=== PATIENT | male | born 1945 | race Caucasian/White ===

== ENCOUNTER 2018-01-10 11:15 | Day surgery (SDC) | payer MEDICARE ==
[~2018-01-10] VITALS: Ht 182.9 cm; Wt 102.5 kg
[~2018-01-10 11:15] MED LIST: ALBU90OI6 INH; ASPI325 PO; ASPI81CH PO; ATEN25 PO; CETI10 PO; CETI5 PO; CHOL10002 PO; DOCU100 PO; FERR325 PO; FISH1000 PO; Flonase 0.05% N16 GM; LOSA25 PO; MAGNESIUM PO; MULVITMIND PO; OMEP20ER PO; OXYACE5T PO; Percocet 5-3251 EACH PO; TAMS.4ER PO; TRAM50 PO; WARF4 PO
== END 2018-01-10 13:26 | disposition home or self-care (01) ==
LOC: ORSCSDS 11:15
PROVIDERS: Internal Medicine Gastroenterology
PROC: 0DBN8ZX Excision of Sigmoid Colon, Via Natural or Artificial Opening Endoscopic, Diagnostic (ICD-10-PCS; principal; 2018-01-10 12:30)
PROC: 0DBK8ZX Excision of Ascending Colon, Via Natural or Artificial Opening Endoscopic, Diagnostic (ICD-10-PCS; principal; 2018-01-10 12:30)
PROC: 0DBH8ZX Excision of Cecum, Via Natural or Artificial Opening Endoscopic, Diagnostic (ICD-10-PCS; principal; 2018-01-10 12:30)
DX: Z12.11 Encounter for screening for malignant neoplasm of colon (principal); D12.0 Benign neoplasm of cecum; K63.5 Polyp of colon; K64.8 Other hemorrhoids; K57.30 Diverticulosis of large intestine without perforation or abscess without bleeding; Z86.010 Personal history of colon polyps; I48.0 Paroxysmal atrial fibrillation; Z95.0 Presence of cardiac pacemaker; I10 Essential (primary) hypertension; K21.9 Gastro-esophageal reflux disease without esophagitis; J45.909 Unspecified asthma, uncomplicated; Z87.891 Personal history of nicotine dependence; G47.33 Obstructive sleep apnea (adult) (pediatric); Z79.82 Long term (current) use of aspirin; Z79.899 Other long term (current) drug therapy
CPT/HCPCS: 88305

== ENCOUNTER → 2018-02-15 | Outpatient (CLI) | payer MEDICARE | END | disposition home or self-care (01) | LOC: LAB SHORT 11:18 → PLD 11:18 | DX: D23.62 Other benign neoplasm of skin of left upper limb, including shoulder (principal); D49.2 Neoplasm of unspecified behavior of bone, soft tissue, and skin | CPT/HCPCS: 88305 ==

== ENCOUNTER 2020-11-19 08:19 | Day surgery (SDC) | payer MEDICARE ==
[~2020-11-19] VITALS: Ht 180.3 cm; Wt 103.5 kg
[~2020-11-19 08:19] MED LIST changes: -ASPI325 PO; +Aspir 8181 MG PO; +FLOVENT HFA12 GM INH; +RIZATRIPTAN10 MG SL; +TOBRADEX ST EYE5 M1 BOTHEYES; +TOPI50 PO
--- NOTE | 2020-11-19 09:02 | NUR ---
Ambulatory in Day Surgery History, Chart, Medications and Allergies reviewed before start of procedure. Lungs clear T/O to Auscultation. Patient confirms NPO status and agrees with scheduled surgery. Pre-Op teaching done. Pt verbalizes understanding. Patient States Post-Procedure ride home has been arranged.
--- NOTE | 2020-11-19 09:40 | NUR ---
Ambulatory in Day Surgery History, Chart, Medications and Allergies reviewed before start of procedure.Patient confirms NPO status and agrees with scheduled surgery. Patient reports completing Chlorhexadine shower X2 prior to admission to hospital.Surgical site prepped with 2% Chlorhexidine cloth wipe.
--- NOTE | 2020-11-19 12:44 | NUR ---
Patient up to Ambulate independently. Gait steady. Discharge instructions reviewed with patient. Patient verbalizes understanding. Copy given to patient to take home. Discharged via wheelchair to private car for ride home.
== END 2020-11-19 12:43 | disposition home or self-care (01) ==
LOC: ORSCMMR 08:19 → ORD 09:30 → ORSCMMR 12:43
PROVIDERS: Surgery
PROC: 0WUF0JZ Supplement Abdominal Wall with Synthetic Substitute, Open Approach (ICD-10-PCS; principal; 2020-11-19 09:30)
DX: K42.0 Umbilical hernia with obstruction, without gangrene (principal); I10 Essential (primary) hypertension; I48.0 Paroxysmal atrial fibrillation; G47.33 Obstructive sleep apnea (adult) (pediatric); J45.909 Unspecified asthma, uncomplicated; Z87.891 Personal history of nicotine dependence; Z79.899 Other long term (current) drug therapy
CPT/HCPCS: A9270; C1781; J0690; J1100; J2250; J2405; J3010; J7120

== ENCOUNTER → 2021-04-26 | Outpatient (CLI) | payer MEDICARE | END | disposition home or self-care (01) | LOC: LAB SHORT 14:19 → LAB 14:19 | DX: D22.5 Melanocytic nevi of trunk (principal) | CPT/HCPCS: 88305 ==

== ENCOUNTER 2021-11-16 12:30 | Day surgery (SDC) | payer MEDICARE ==
[~2021-11-16] VITALS: Ht 177.8 cm; Wt 103.4 kg
[~2021-11-16 12:30] MED LIST changes: +ALBU90OI INH
== END 2021-11-16 15:25 | disposition home or self-care (01) ==
LOC: ORSCSDS 12:30
PROVIDERS: Surgery
PROC: 0DB48ZX Excision of Esophagogastric Junction, Via Natural or Artificial Opening Endoscopic, Diagnostic (ICD-10-PCS; principal; 2021-11-16 13:45)
PROC: 0DJD8ZZ Inspection of Lower Intestinal Tract, Via Natural or Artificial Opening Endoscopic (ICD-10-PCS; principal; 2021-11-16 13:45)
PROC: 0DB68ZX Excision of Stomach, Via Natural or Artificial Opening Endoscopic, Diagnostic (ICD-10-PCS; principal; 2021-11-16 13:45)
DX: Z12.11 Encounter for screening for malignant neoplasm of colon (principal); K22.70 Barrett's esophagus without dysplasia; Z86.010 Personal history of colon polyps; K64.8 Other hemorrhoids; K57.30 Diverticulosis of large intestine without perforation or abscess without bleeding; J45.909 Unspecified asthma, uncomplicated; Z95.0 Presence of cardiac pacemaker; E66.9 Obesity, unspecified; Z68.31 Body mass index [BMI] 31.0-31.9, adult; Z79.82 Long term (current) use of aspirin; Z79.899 Other long term (current) drug therapy
CPT/HCPCS: 43239; G0105; 88305; 88342; J0330; J0461; J2405; J2704; J7120

== ENCOUNTER 2022-01-01 09:52 | Emergency (ER) | payer MEDICARE ==
[~2022-01-01] VITALS: Ht 177.8 cm; Wt 106.6 kg
[2022-01-01 11:23] LABS: BASOPHILS ABSOLUTE AUTO 0.06 K/mm3 (0.00-0.23); BASOPHILS PERCENT AUTO 1 % (0-2); EOSINOPHILS ABSOLUTE AUTO 0.13 K/mm3 (0.00-0.68); EOSINOPHILS PERCENT AUTO 3 % (0-6); Hematocrit 44.3 % (37.0-53.0); Hemoglobin 15.1 g/dL (13.5-17.5); IMMATURE GRAN ABSOLUTE AUTO 0.01 K/mm3 (0.00-0.10); IMMATURE GRAN PERCENT AUTO 0 % (0-1); LYMPHOCYTES ABSOLUTE AUTO 1.32 K/mm3 (0.84-5.20); LYMPHOCYTES PERCENT AUTO 25 % (21-46); MONOCYTES ABSOLUTE AUTO 0.52 K/mm3 (0.16-1.47); MONOCYTES PERCENT AUTO 10 % (4-13); Mean Corpuscular HGB 31.9 pg (26.0-34.0); Mean Corpuscular HGB Conc 34.1 g/dL (31.5-36.5); Mean Corpuscular Volume 94 fL (80-100); Mean Platelet Volume 10.8 fL (9.1-12.4); NEUTROPHILS ABSOLUTE AUTO 3.23 K/mm3 (1.96-9.15); NEUTROPHILS PERCENT AUTO 61 % (41-73); Platelet Count 155 K/mm3 (150-400); RDW Coefficient Variation 12.4 % (11.7-14.2); RDW Standard Deviation 43.2 fL (35.1-46.3); Red Blood Cell Count 4.74 M/mm3 (4.30-5.90); White Blood Cell Count 5.27 K/mm3 (4.00-11.30)
[2022-01-01 11:39] LABS: Albumin, Blood 3.6 g/dL (3.4-5.0); Albumin/Globulin Ratio 1.1 (0.8-1.8); Bilirubin, Total 0.6 mg/dL (0.1-1.0); Bun/Creatinine Ratio 22.8 (12.0-20.0); Creatinine, Blood 0.79 mg/dL (0.60-1.20); Globulin, Blood 3.2 g/dL (2.2-4.0); Potassium, Blood 4.5 mmol/L (3.5-5.5); Total Protein, Blood 6.8 g/dL (6.4-8.2)
== END 2022-01-01 12:22 | disposition home or self-care (01) ==
LOC: ER 09:52
PROVIDERS: Physician Assistant
DX: I49.3 Ventricular premature depolarization (principal); I10 Essential (primary) hypertension; J44.9 Chronic obstructive pulmonary disease, unspecified; K21.9 Gastro-esophageal reflux disease without esophagitis; Z95.0 Presence of cardiac pacemaker; Z87.891 Personal history of nicotine dependence; Z79.899 Other long term (current) drug therapy
CPT/HCPCS: 36415; 71045; 80053; 83690; 83735; 83880; 84484; 85025; 93005; 93010

== ENCOUNTER 2022-11-30 08:02 | Day surgery (SDC) | payer MEDICARE ==
[2022-11-30] VITALS (9 sets, daily range): BP systolic 86–140; BP diastolic 47–79
[~2022-11-30] VITALS: Ht 180.3 cm; Wt 107.0 kg
[~2022-11-30 08:02] MED LIST changes: +ASCORBIC ACID; +ASPIR 8181 M1 PO; +CHOLECALCIFEROL; +MAGNESIUM; +MELO7.5 PO; +METO25ER PO; +SPIR25 PO; +SYMBICORT 80-10.2 GM; +TORSE20 PO; +Vitamin B Comple1 EA PO
--- NOTE | 2022-11-30 14:00 | NUR ---
PATIENT ARRIVED TO RECOVERY ROOM SITTING UPRIGHT IN RECLINER, CONVERSING APPROPRIATELY. PACEMAKER SITE C/D/I, NO EVIDENCE OF BLEEDING. VSS ON ROOM AIR.
--- NOTE | 2022-11-30 14:30 | NUR ---
PATIENT TOLERATING PO INTAKE WELL.
[2022-11-30] MEDS ORDERED: CEPH500 PO (14:39)
--- NOTE | 2022-11-30 15:20 | NUR ---
CHEST X RAY AND EKG PERFORMED. PATIENT SITTING COMFORTABLY IN RECLINER. PACEMAKER SITE C/D/I, PATIENT DENYING ANY PAIN. VSS ON ROOM AIR.
--- NOTE | 2022-11-30 16:21 | NUR ---
PATIENT DISCHARGE INSTRUCTIONS REVIEWED, ALL QUESTIONS ANSWERED. PATIENT RECEIVING ABX. VSS ON ROOM AIR. PACEMAKER SITE C/D/I.
--- NOTE | 2022-11-30 16:35 | NUR ---
L ARM IN SLING. PATIENT INSTRUCTED TO WEAR SLING FOR 3 DAYS EXCEPT WHEN SLEEPING. DRESSING C/D/I, NO EVIDENCE OF BLEEDING.
--- NOTE | 2022-11-30 16:47 | NUR ---
PATIENT DISCHARGED HOME AT THIS TIME. PIV REMOVED WITHOUT DIFFICULTY, CATHETER INTACT. ALL PATIENT BELONGINGS AND PAPERWORK LEFT WITH PATIENT. PATIENT WHEELED TO HOSPITAL ENTRANCE. SPOUSE ABLE TO PROVIDE TRANSPORTATION HOME
== END 2022-11-30 16:50 | disposition home or self-care (01) ==
LOC: MHTC 08:02
DX: I42.8 Other cardiomyopathies (principal); Z45.010 Encounter for checking and testing of cardiac pacemaker pulse generator [battery]; I44.2 Atrioventricular block, complete; K21.9 Gastro-esophageal reflux disease without esophagitis; G47.33 Obstructive sleep apnea (adult) (pediatric); I48.0 Paroxysmal atrial fibrillation; Z87.891 Personal history of nicotine dependence; Z88.8 Allergy status to other drugs, medicaments and biological substances; Z88.7 Allergy status to serum and vaccine; Z79.899 Other long term (current) drug therapy
CPT/HCPCS: 33225; 33229; 71045; 76937; 93005; 93010; 99152; 99153; C1769; C1781; C1887; C1894; C2621; J0690; J1200; J1644; J1720; J2250; J3010; J7030; J7040; Q9967

== ENCOUNTER 2023-07-19 16:07 | Inpatient (IN) | payer MEDICARE ==
[~2023-07-19] VITALS: Ht 180.3 cm; Wt 107.4 kg
[~2023-07-19 16:07] MED LIST changes: -JARDIANCE10 MG PO; -NASACORT10.8 ML; -Pulmicort Flex90 MCG INH
[2023-07-20 00:02] VITALS: BP 140/84
[2023-07-20 03:18] VITALS: BP 129/80
--- NOTE | 2023-07-20 03:40 | NUR ---
CALLED HOSPITALIST AFTER CHEST X-RAY WAS COMPLETED TO CONFIRM PLACEMENT OF NG TUBE. PER HOSPITALIST, NG CORRECTLY PLACED AND APPROPRIATE TO BE CONNECTED TO LOW INTERMITTENT SUCTION.
[2023-07-20 05:17] LABS: BASOPHILS ABSOLUTE AUTO 0.03 K/mm3 (0.00-0.23); BASOPHILS PERCENT AUTO 0 % (0-2); EOSINOPHILS ABSOLUTE AUTO 0.07 K/mm3 (0.00-0.68); EOSINOPHILS PERCENT AUTO 1 % (0-6); Hematocrit 46.5 % (37.0-53.0); Hemoglobin 16.1 g/dL (13.5-17.5); IMMATURE GRAN ABSOLUTE AUTO 0.02 K/mm3 (0.00-0.10); IMMATURE GRAN PERCENT AUTO 0 % (0-1); LYMPHOCYTES ABSOLUTE AUTO 1.54 K/mm3 (0.84-5.20); LYMPHOCYTES PERCENT AUTO 22 % (21-46); MONOCYTES ABSOLUTE AUTO 1.03 K/mm3 (0.16-1.47); MONOCYTES PERCENT AUTO 14 % (4-13); Mean Corpuscular HGB 32.1 pg (26.0-34.0); Mean Corpuscular HGB Conc 34.6 g/dL (31.5-36.5); Mean Corpuscular Volume 93 fL (80-100); NEUTROPHILS ABSOLUTE AUTO 4.48 K/mm3 (1.96-9.15); NEUTROPHILS PERCENT AUTO 62 % (41-73); Platelet Count 162 K/mm3 (150-400); RDW Standard Deviation 44.1 fL (35.1-46.3); Red Blood Cell Count 5.01 M/mm3 (4.30-5.90); White Blood Cell Count 7.17 K/mm3 (4.00-11.30)
[2023-07-20 05:49] LABS: Albumin, Blood 3.1 g/dL (3.4-5.0); Albumin/Globulin Ratio 0.8 (0.8-1.8); Bilirubin, Total 0.7 mg/dL (0.1-1.0); Bun/Creatinine Ratio 35.9 (12.0-20.0); Creatinine, Blood 0.78 mg/dL (0.60-1.20); Globulin, Blood 3.9 g/dL (2.2-4.0); Potassium, Blood 4.7 mmol/L (3.5-5.5)
--- NOTE | 2023-07-20 06:08 | NUR ---
SHIFT SUMMARY: LEXA IS A&OX4. VSS, NO ACUTE EVENTS SINCE ADMISSION TO THE FLOOR THIS SHIFT. HE IS NPO, NG TUBE IN PLACE TO LOW INTERMITTENT SUCTION. PT IS INDEPENDENT IN THE ROOM, CONTINENT OF BLADDER AND BOWEL, AND REPORTS ADEQUATE PAIN RELIEF WITH MEDICATIONS PER MAR. PER ER DOCUMENTATION, SURGICAL CONSULT CALLED TO ON-CALL GENERAL SURGEON. PT REPORTS NAUSEA WHICH HE STATED WAS ALLEVIATED WITH MEDICATION PER MAR. PT IS LYING IN BED WITH THE CALL LIGHT IN REACH. WILL GIVE REPORT TO ONCOMING NURSE.
[2023-07-20 07:43] VITALS: BP 147/83
[2023-07-20] MEDS ORDERED: Pulmicort Flex90 MCG INH (14:33)
[2023-07-20] MEDS ORDERED: NASACORT10.8 ML (15:10)
[2023-07-20 15:43] VITALS: BP 128/76
--- NOTE | 2023-07-20 16:40 | NUR ---
SHIFT SUMMARY PATIENT ALERT AND INTERACTIVE. PATIENT AMBULATING IN HALLS. PATIENT ABLE TO PASS GAS BUT UNABLE TO HAVE A BM. PATIENT ANXIOUS AND WORRIED ABOUT POSSIBLE OUTCOMES. PATIENT HOPEFUL THAT NG TUBE WILL BE ABLE TO COME OUT. PATIENT DENIES ANY NAUSEA. NG HAS BEEN CLAMPED MOST OF THE DAY BECAUSE OF RADIOLOGY STUDY. FAMILY AT BEDSIDE AND EAGER TO HEAR UPDATE FROM SURGEON.
[2023-07-20 19:43] VITALS: BP 137/80
[2023-07-21 03:17] VITALS: BP 159/77
[2023-07-21 04:46] LABS: BASOPHILS ABSOLUTE AUTO 0.04 K/mm3 (0.00-0.23); BASOPHILS PERCENT AUTO 1 % (0-2); EOSINOPHILS ABSOLUTE AUTO 0.19 K/mm3 (0.00-0.68); EOSINOPHILS PERCENT AUTO 3 % (0-6); Hematocrit 43.2 % (37.0-53.0); Hemoglobin 15.1 g/dL (13.5-17.5); IMMATURE GRAN ABSOLUTE AUTO 0.02 K/mm3 (0.00-0.10); IMMATURE GRAN PERCENT AUTO 0 % (0-1); LYMPHOCYTES ABSOLUTE AUTO 1.27 K/mm3 (0.84-5.20); LYMPHOCYTES PERCENT AUTO 20 % (21-46); MONOCYTES ABSOLUTE AUTO 0.76 K/mm3 (0.16-1.47); MONOCYTES PERCENT AUTO 12 % (4-13); Mean Corpuscular HGB 31.9 pg (26.0-34.0); Mean Corpuscular Volume 91 fL (80-100); Mean Platelet Volume 10.3 fL (9.1-12.4); NEUTROPHILS ABSOLUTE AUTO 4.05 K/mm3 (1.96-9.15); NEUTROPHILS PERCENT AUTO 64 % (41-73); Platelet Count 153 K/mm3 (150-400); RDW Coefficient Variation 12.5 % (11.7-14.2); RDW Standard Deviation 42.1 fL (35.1-46.3); Red Blood Cell Count 4.73 M/mm3 (4.30-5.90); White Blood Cell Count 6.33 K/mm3 (4.00-11.30)
--- NOTE | 2023-07-21 04:58 | NUR ---
PATIENT IS ALERT AND ORIENTED, ON ROOM AIR. WITH NG TUBE PLACED AND CLAMPED. WITH PIV ON RIGHT AC WITH ONGOING IV FLUIDS INFUSING WELL. COMPLAINT OF THROAT PAIN, WAS ABLE TO GET MEDICATION ORDERED AND MEDICATED ACCORDINGLY. DR. LOVE CAME BY BUT NOT ABLE TO SEE PATIENT PATIENT WAS SLEEPING AT THAT TIME AND HER MESSAGE WAS RELAYED TO THE PATIENT. FOR ABDOMINAL XRAY TODAY. PATIENT STROLLED ON THE HALLWAY. NEEDS ATTENDED. CALL LIGHT WITHIN PATIENT'S REACH. WILL CONTINUE TO MONITOR.
[2023-07-21 05:15] LABS: Calcium, Blood 8.6 mg/dL (8.5-10.1); Creatinine, Blood 0.73 mg/dL (0.60-1.20); Potassium, Blood 4.1 mmol/L (3.5-5.5)
[2023-07-21 07:46] VITALS: BP 151/80
[2023-07-21 15:11] VITALS: BP 111/83
[2023-07-21] MEDS ORDERED: JARDIANCE10 MG PO (17:28)
--- NOTE | 2023-07-21 18:00 | NUR ---
SHIFT SUMMARY AND DISCHARGE PATIENT ALERT AND INTERACTIVE. PATIENT UP AMBULATING IN THE HALLS PATIENT HAVING TENDERNESS OF ABD, PASSING GAS AND ATTEMPTING TO HAVE A BM AT START OF SHIFT. ADVANCED DIET PATIENT ABLE TO HAVE MULTIPLE BMS AFTER MIRALAX, DSS, AND PRUNE JUICE COCKTAIL. AFTER HAVING FREQUENT STOOLS AND TOLERATING A DIET, PATIENT WANTING TO GO HOME. DR MORGAN AND DR. LOVE NOTIFIED. DISCHARGE ORDERS PLACED. PATIENT DISCHARGED HOME. DISCHARGE INSTRUCTIONS REVIEWED WITH PATIENT. IV REMOVED. BELONGINGS RETURNED TO PATIENT. RX FAXED TO [facility], PATIENT TAKEN OUT VIA WHEELCHAIR BY LAST SORTER.
== END 2023-07-21 17:57 | disposition home or self-care (01) | DRG 389 ==
LOC: ER 16:07 → MEDS 07-20 00:06 → SURS 07-20 00:06 → MEDS 07-20 00:10
PROVIDERS: Internal Medicine; ADMIT Student in an Organized Health Care Education/Training Program
DX: K56.609 Unspecified intestinal obstruction, unspecified as to partial versus complete obstruction (principal); I50.22 Chronic systolic (congestive) heart failure; I10 Essential (primary) hypertension; I48.0 Paroxysmal atrial fibrillation; G47.33 Obstructive sleep apnea (adult) (pediatric); I11.0 Hypertensive heart disease with heart failure; G43.909 Migraine, unspecified, not intractable, without status migrainosus; N40.0 Benign prostatic hyperplasia without lower urinary tract symptoms; K22.70 Barrett's esophagus without dysplasia; J44.9 Chronic obstructive pulmonary disease, unspecified; G25.81 Restless legs syndrome; M19.019 Primary osteoarthritis, unspecified shoulder; K21.9 Gastro-esophageal reflux disease without esophagitis; Z86.73 Personal history of transient ischemic attack (TIA), and cerebral infarction without residual deficits; Z88.7 Allergy status to serum and vaccine; Z88.8 Allergy status to other drugs, medicaments and biological substances; Z91.041 Radiographic dye allergy status; Z91.040 Latex allergy status; Z91.018 Allergy to other foods; Z91.013 Allergy to seafood; Z79.82 Long term (current) use of aspirin; Z79.52 Long term (current) use of systemic steroids; Z79.899 Other long term (current) drug therapy; Z87.19 Personal history of other diseases of the digestive system; Z87.01 Personal history of pneumonia (recurrent); Z90.49 Acquired absence of other specified parts of digestive tract; Z95.0 Presence of cardiac pacemaker; Z98.890 Other specified postprocedural states; Z96.653 Presence of artificial knee joint, bilateral; Z98.1 Arthrodesis status; Z96.612 Presence of left artificial shoulder joint; Z96.611 Presence of right artificial shoulder joint; Z87.891 Personal history of nicotine dependence; R10.9 Unspecified abdominal pain; R14.0 Abdominal distension (gaseous)
CPT/HCPCS: 36415; 71045; 74018; 74022; 74176; 74250; 80048; 80053; 82947; 83605; 83690; 83735; 84484; 85025; 94640; 94664; 94760; 96361; 96374; 96375; 99285-25; A9270; J1170; J1650; J2405; J7030; J7120

== ENCOUNTER → 2023-07-19 | Outpatient (CLI) | payer MEDICARE ==
[~2023-07-19] MED LIST changes: +CEPH500 PO; -CETI5 PO; +JARDIANCE10 MG PO; +NASACORT10.8 ML; +Pulmicort Flex90 MCG INH; +ZYRTEC10 M2 PO
[2023-07-19 12:26] LABS: BASOPHILS ABSOLUTE AUTO 0.05 K/mm3 (0.00-0.23); BASOPHILS PERCENT AUTO 1 % (0-2); EOSINOPHILS ABSOLUTE AUTO 0.15 K/mm3 (0.00-0.68); EOSINOPHILS PERCENT AUTO 2 % (0-6); Hematocrit 53.7 % (37.0-53.0); Hemoglobin 18.2 g/dL (13.5-17.5); IMMATURE GRAN ABSOLUTE AUTO 0.04 K/mm3 (0.00-0.10); IMMATURE GRAN PERCENT AUTO 0 % (0-1); LYMPHOCYTES ABSOLUTE AUTO 1.52 K/mm3 (0.84-5.20); LYMPHOCYTES PERCENT AUTO 17 % (21-46); MONOCYTES ABSOLUTE AUTO 0.97 K/mm3 (0.16-1.47); MONOCYTES PERCENT AUTO 11 % (4-13); Mean Corpuscular HGB 31.5 pg (26.0-34.0); Mean Corpuscular HGB Conc 33.9 g/dL (31.5-36.5); Mean Corpuscular Volume 93 fL (80-100); Mean Platelet Volume 10.2 fL (9.1-12.4); NEUTROPHILS ABSOLUTE AUTO 6.34 K/mm3 (1.96-9.15); NEUTROPHILS PERCENT AUTO 70 % (41-73); Platelet Count 165 K/mm3 (150-400); RDW Coefficient Variation 13.2 % (11.7-14.2); RDW Standard Deviation 44.8 fL (35.1-46.3); Red Blood Cell Count 5.78 M/mm3 (4.30-5.90); White Blood Cell Count 9.07 K/mm3 (4.00-11.30)
[2023-07-19 12:34] LABS: Albumin, Blood 3.8 g/dL (3.4-5.0); Albumin/Globulin Ratio 0.9 (0.8-1.8); Bilirubin, Total 0.7 mg/dL (0.1-1.0); Calcium, Blood 9.5 mg/dL (8.5-10.1); Globulin, Blood 4.2 g/dL (2.2-4.0); Potassium, Blood 4.4 mmol/L (3.5-5.5)
== END | disposition home or self-care (01) ==
LOC: LAB 12:17 → LAB SHORT 12:17
PROVIDERS: Physician Assistant
DX: R10.9 Unspecified abdominal pain (principal)
CPT/HCPCS: 80053; 83690; 84484; 85025

== ENCOUNTER 2025-01-14 07:31 | Day surgery (SDC) | payer MEDICARE ==
[~2025-01-14] VITALS: Ht 180.3 cm; Wt 107.5 kg
[~2025-01-14 07:31] MED LIST changes: +Balanced Salt Epinephrine Irrigation Solution 500 mL IR SCH; +JARDIANCE10 MG PO; +Moxifloxacin HCL 0.5 MG/0.1 ML 0.4MLSYR LEFTEYE SCH; +NASACORT10.8 ML; +Ondansetron 4 MG SoluTab MM PRN; +PHENYLEPHRINE\\TROPICAMIDE\\TETRACAINE OPHTHALMIC DILATING SOLN LEFTEYE PRN; +Povidone-Iodine 450 DROP/30 ML Solution LEFTEYE SCH; +Povidone-Iodine 450 DROP/30 ML Solution ONE; +Pulmicort Flex90 MCG INH; +Tetracaine HCl/Pf 0.5% Opth Soln 4 ml ONE
--- NOTE | 2025-01-14 08:10 | NUR ---
01/14/25 0810 Lilly Soto PT STATES ANXIETY LEVEL IS 4/10 BEFORE 10MG PO VALIUM CALL LIGHT IN HAND PT IS ON CONTINUOUS PULSE OX MONITORING
[2025-01-14] MEDS ORDERED: DUTASTERIDE0.5 M3 PO (08:15)
[2025-01-14] MEDS ORDERED: LOSARTAN POTASS25 M2 PO (08:16)
--- NOTE | 2025-01-14 09:03 | NUR ---
01/14/25 0903 Lilly Chaney no signs and symptoms of distress, pt tolerated well
--- NOTE | 2025-01-14 09:06 | NUR ---
01/14/[address] AT BEDSIDE
[2025-01-14 09:07] VITALS: BP 124/82
== END 2025-01-14 09:22 | disposition home or self-care (01) ==
LOC: ORSCSDS 07:31
PROVIDERS: Student in an Organized Health Care Education/Training Program
PROC: 08RK3JZ Replacement of Left Lens with Synthetic Substitute, Percutaneous Approach (ICD-10-PCS; principal; 2025-01-14 09:30)
DX: H25.812 Combined forms of age-related cataract, left eye (principal); H21.81 Floppy iris syndrome; Z96.1 Presence of intraocular lens; J45.909 Unspecified asthma, uncomplicated; I10 Essential (primary) hypertension; N40.0 Benign prostatic hyperplasia without lower urinary tract symptoms; K21.9 Gastro-esophageal reflux disease without esophagitis; G47.33 Obstructive sleep apnea (adult) (pediatric); I48.0 Paroxysmal atrial fibrillation; Z79.899 Other long term (current) drug therapy; Z87.891 Personal history of nicotine dependence
CPT/HCPCS: A9270; V2632